=== PATIENT | female | born 1980 | race Two or more races ===

== ENCOUNTER 2024-06-10 13:37 | Emergency (ER) | payer MEDICAID ==
[~2024-06-10] VITALS: Ht 167.6 cm; Wt 63.5 kg
[2024-06-10 13:45] VITALS: BP 128/71; TEMP 98
[2024-06-10 14:18] VITALS: O2SAT 98
== END 2024-06-10 14:19 | disposition home or self-care (01) ==
LOC: ER 13:46
DX: S81.811D Laceration without foreign body, right lower leg, subsequent encounter (principal); Z48.00 Encounter for change or removal of nonsurgical wound dressing; X58.XXXD Exposure to other specified factors, subsequent encounter